=== PATIENT | female | born 1980 | race Hispanic/Latino ===

== ENCOUNTER 2017-03-17 08:53 | Emergency (ER) | payer BC, SELFPAY ==
--- NOTE | 2017-03-17 09:51 | RAD ---
TWO VIEWS CHEST 03/17/17 COMPARISON: Single view chest 05/22/15 INDICATION: Cough. FINDINGS: Lungs are clear. Cardiac silhouette is within normal limits of size. No effusion or pneumothorax. Os seous structures are intact. IMPRESSION: No focal consolidation. POS: H
== END 2017-03-17 10:05 | disposition home or self-care (01) ==
LOC: ERS 08:53
DX: J20.9 Acute bronchitis, unspecified (principal); F32.9 Major depressive disorder, single episode, unspecified
CPT/HCPCS: 71020

== ENCOUNTER 2017-07-26 08:23 | Emergency (ER) | payer BC, SELFPAY ==
[2017-07-26 09:31] LABS: Pregnancy Test - Urine (BHCG) Negative (Negative); Pregu Control Background? CLEAR/WHITE (CLR/WHITE); Pregu Control Bar Appear? YES (CONTROL BAR); Specific Gravity 1.015 (1.002-1.036)
--- NOTE | 2017-07-26 09:47 | RAD ---
PORTABLE CHEST ONE VIEW: Date: 07-26-17 Time: 9:30 a.m. History: Cough. FINDINGS: Comparison is made with exam of 03-17-17 and 05-22-15. The cardiomediastinum is normal. The lungs are clear. The bony thorax is normal. IMPRESSION: Normal exam. POS: OFF
== END 2017-07-26 10:12 | disposition home or self-care (01) ==
LOC: ERS 08:23
DX: B34.9 Viral infection, unspecified (principal); F32.9 Major depressive disorder, single episode, unspecified
CPT/HCPCS: 71045; 81025; 87081; 87430; 87804

== ENCOUNTER 2017-10-17 19:24 | Emergency (ER) | payer SELFPAY ==
[2017-10-17 20:12] LABS: Bilirubin Negative (Negative); Blood, Urine Negative (Negative); Clarity CLOUDY (Clear); Glucose, Urine (Dipstick) Negative (Negative); Leukocyte Moderate (Negative); Nitrite Negative (Negative); Protein, Urine (Dipstick) Negative (Neg-Trace); Specific Gravity, Urine 1.015 (1.002-1.036); pH, Urine 7.5 (5.0-9.0)
[2017-10-17 20:14] LABS: Bacteria/HPF 1+ HPF (None Seen); Hyaline Casts/LPF 0-3 HYALINE CAST LPF (0-3 Hyaline); Pathc Cast-AUWi Flag 0.14 (0-2.49); RBC/HPF 0-3 HPF (0-3)
[2017-10-17 20:16] LABS: #Basophils 0.1 thou/uL (0.0-0.2); #Eosinphils 0.2 thou/uL (0.0-0.7); #Lymphocytes 3.5 thou/uL (1.20-3.40); #Monocytes 0.6 thou/uL (0.11-0.59); #Neutrophils 5.9 thou/uL (1.40-6.50); %Basophils 0.8 % (0.0-1.0); %Eosinophils 2.2 % (0.0-10.0); %Lymphocytes 34.2 % (21.0-51.0); %Monocytes 5.7 % (0.0-10.0); %Neutrophils 57.2 % (42.0-75.0); Hemoglobin 12.8 g/dL (12.0-16.0); Mean Corpuscular HGB CONC 33.6 g/dL (32.0-36.0); Mean Corpuscular Hemoglobin 28.9 pg (27.0-31.0); Mean Platelet Volume 7.6 fL (7.4-10.4); Platelet Count 256 thou/uL (130-400); RBC Distribution Width 12.7 % (11.5-14.5); Red Blood Cell (RBC) Count 4.42 mill/uL (4.20-5.40); White Blood Cell (WBC) Count 10.3 thou/uL (4.8-10.8)
[2017-10-17 20:40] LABS: ALT (SGPT) 12 U/L (8-55); AST (SGOT) 15 U/L (5-34); Albumin 3.8 g/dL (3.5-5.0); Alkaline Phosphatase 81 U/L (40-150); Anion Gap 10 mmol/L (10-20); BUN (Urea Nitrogen) 11 mg/dL (7.0-18.7); Bilirubin, Total 0.2 mg/dL (0.2-1.2); Calc. Creatinine Clearance 0 mL/min (70-130); Calcium 8.8 mg/dL (7.8-10.44); Carbon Dioxide 28 mmol/L (22-29); Chloride 105 mmol/L (98-107); Estimated GFR-MDRD 71; Globulin 3.4 g/dL (2.4-3.5); Glucose 98 mg/dL (70-105); Potassium 3.6 mmol/L (3.5-5.1); Protein, Total 7.2 g/dL (6.0-8.3); Sodium 139 mmol/L (136-145)
== END 2017-10-17 22:07 | disposition home or self-care (01) ==
LOC: ERS 19:24
DX: N12 Tubulo-interstitial nephritis, not specified as acute or chronic (principal); F32.9 Major depressive disorder, single episode, unspecified
CPT/HCPCS: 36415; 80053; 81003; 81015; 85025; 87086; 99284

== ENCOUNTER 2019-01-29 14:39 | Emergency (ER) | payer SELFPAY ==
[2019-01-29] MEDS ORDERED: diphenhydrAMINE 50 MG/ML VIAL ONE (15:28)
[2019-01-29] MEDS ORDERED: Metoclopramide HCl 10 MG/2 ML VIAL ONE (15:28)
[2019-01-29] MEDS ORDERED: Ketorolac Tromethamine 30 MG/ML VIAL ONE (15:28)
[2019-01-29] MEDS ORDERED: diphenhydrAMINE 12.5 MG/5 ML UDCUP ONE (15:28)
[2019-01-29] MEDS ORDERED: Acetaminophen 500 MG TAB ONE (15:28)
== END 2019-01-29 17:28 | disposition home or self-care (01) ==
LOC: ERS 14:39
DX: R51 Headache (principal)
CPT/HCPCS: 93005; 96365; 96366; 96375; J1200; J1885; J2765; Q0163

== ENCOUNTER 2019-02-08 13:49 | Emergency (ER) | payer SELFPAY ==
[2019-02-08 15:15] LABS: Bacteria/HPF None Seen HPF (None Seen); Bilirubin Negative (Negative); Blood, Urine Negative (Negative); Clarity Clear (Clear); Glucose, Urine (Dipstick) Normal (Negative); Leukocyte 75 Leu/uL (Negative); Nitrite Negative (Negative); Protein, Urine (Dipstick) Negative (Neg-Trace); RBC/HPF 0-3 HPF (0-3); Urobilinogen Normal mg/dL (Less than 2)
[2019-02-08 15:28] LABS: Pregnancy Test - Urine (BHCG) Negative (Negative); Pregu Control Background? CLEAR/WHITE (CLR/WHITE); Pregu Control Bar Appear? YES (CONTROL BAR); Specific Gravity 1.012 (1.002-1.036)
[2019-02-08 15:33] LABS: #Basophils 0.1 thou/uL (0.0-0.2); #Eosinphils 0.1 thou/uL (0.0-0.7); #Monocytes 0.5 thou/uL (0.11-0.59); #Neutrophils 6.5 thou/uL (1.40-6.50); %Basophils 0.6 % (0.0-1.0); %Eosinophils 1.1 % (0.0-10.0); %Lymphocytes 29.5 % (21.0-51.0); %Monocytes 4.5 % (0.0-10.0); %Neutrophils 64.3 % (42.0-75.0); Hemoglobin 12.5 g/dL (12.0-16.0); Mean Corpuscular HGB CONC 34.2 g/dL (32.0-36.0); Mean Corpuscular Hemoglobin 28.8 pg (27.0-31.0); Mean Corpuscular Volume 84.2 fL (78.0-98.0); Mean Platelet Volume 7.8 fL (7.4-10.4); Platelet Count 242 thou/uL (130-400); RBC Distribution Width 12.4 % (11.5-14.5); Red Blood Cell (RBC) Count 4.35 mill/uL (4.20-5.40); White Blood Cell (WBC) Count 10.2 thou/uL (4.8-10.8)
[2019-02-08 15:57] LABS: ALT (SGPT) 14 U/L (8-55); AST (SGOT) 17 U/L (5-34); Alkaline Phosphatase 83 U/L (40-150); Anion Gap 9 mmol/L (10-20); BUN (Urea Nitrogen) 10 mg/dL (7.0-18.7); Bilirubin, Total 0.2 mg/dL (0.2-1.2); Calc. Creatinine Clearance 0 mL/min (70-130); Calcium 9.1 mg/dL (7.8-10.44); Carbon Dioxide 27 mmol/L (22-29); Chloride 103 mmol/L (98-107); Estimated GFR-MDRD 88; Globulin 3.2 g/dL (2.4-3.5); Glucose 89 mg/dL (70-105); Lipase 12 U/L (8-78); Protein, Total 7.2 g/dL (6.0-8.3); Sodium 135 mmol/L (136-145)
[2019-02-08] MEDS ORDERED: Acetaminophen 500 MG TAB ONE (16:37)
== END 2019-02-08 16:41 | disposition home or self-care (01) ==
LOC: ERS 13:49
DX: R10.30 Lower abdominal pain, unspecified (principal); F41.9 Anxiety disorder, unspecified; F32.9 Major depressive disorder, single episode, unspecified
CPT/HCPCS: 36415; 80053; 81003; 81015; 81025; 83690; 85025; 99284

== ENCOUNTER 2019-04-02 19:04 | Emergency (ER) | payer SELFPAY ==
[2019-04-02 20:00] LABS: #Basophils 0.1 thou/uL (0.0-0.2); #Eosinphils 0.2 thou/uL (0.0-0.7); #Lymphocytes 4.1 thou/uL (1.20-3.40); #Monocytes 0.9 thou/uL (0.11-0.59); #Neutrophils 7.3 thou/uL (1.40-6.50); %Basophils 0.7 % (0.0-1.0); %Eosinophils 1.6 % (0.0-10.0); %Lymphocytes 32.6 % (21.0-51.0); %Monocytes 6.9 % (0.0-10.0); %Neutrophils 58.2 % (42.0-75.0); Hemoglobin 12.5 g/dL (12.0-16.0); Mean Corpuscular HGB CONC 34.3 g/dL (32.0-36.0); Mean Corpuscular Volume 84.5 fL (78.0-98.0); Mean Platelet Volume 7.8 fL (7.4-10.4); Platelet Count 290 thou/uL (130-400); RBC Distribution Width 12.4 % (11.5-14.5); White Blood Cell (WBC) Count 12.6 thou/uL (4.8-10.8)
[2019-04-02 20:14] LABS: Bilirubin Negative (Negative); Blood, Urine 3+ (Negative); Clarity Turbid (Clear); Glucose, Urine (Dipstick) Normal (Negative); Leukocyte 250 Leu/uL (Negative); Nitrite Negative (Negative); Protein, Urine (Dipstick) 50 mg/dL (Neg-Trace); RBC/HPF Greater than 50 HPF (0-3); Squamous Epithelial 0-3 HPF (0-3); Urobilinogen 3 mg/dL (Less than 2)
[2019-04-02 20:14] LABS: ALT (SGPT) 18 U/L (8-55); AST (SGOT) 18 U/L (5-34); Alkaline Phosphatase 92 U/L (40-110); Anion Gap 14 mmol/L (10-20); BUN (Urea Nitrogen) 11 mg/dL (7.0-18.7); Bilirubin, Total 0.2 mg/dL (0.2-1.2); Calc. Creatinine Clearance 0 mL/min (70-130); Calcium 9.7 mg/dL (7.8-10.44); Carbon Dioxide 25 mmol/L (22-29); Chloride 104 mmol/L (98-107); Estimated GFR-MDRD 87; Globulin 3.5 g/dL (2.4-3.5); Glucose 83 mg/dL (70-105); Potassium 3.6 mmol/L (3.5-5.1); Protein, Total 7.5 g/dL (6.0-8.3); Sodium 139 mmol/L (136-145)
[2019-04-02 20:23] LABS: Bacteria/HPF Rare-Few HPF (None Seen); Mucous/LPF 1+ LPF (<2+)
[2019-04-02] MEDS ORDERED: Ketorolac Tromethamine 30 MG/ML VIAL ONE (21:49)
--- NOTE | 2019-04-02 22:03 | CT ---
CT Stone Protocol: 04/02/2019 9:42 PM HISTORY: Left mid to low back pain. Recent cervical biopsy COMPARISON: None. TECHNIQUE: Multiple contiguous axial images were obtained and a CT of the abdomen and pelvis without IV contrast . Coronal and sagittal reformats were performed. FINDINGS: This examination is limited for the evaluation of solid organs and vascular structures due to the lac k of intravenous contrast. Lower Chest: within normal limits. Abdomen: Liver: within normal limits. Bile Ducts: Normal caliber. Gallbladder: No calcified gallstones. Normal caliber wall. Pancreas: within normal limits. Spleen: within normal limits. Adrenals: within normal limits. Kidneys: within normal limits. Pelvis: Reproductive Organs: An exophytic mass emanating from the anterior uterus likely represents a fibroid . Ureters: within normal limits. Bladder: within normal limits. Bowel: Normal caliber. Normal appendix. Mesenteric Lymph Nodes: No enlarged mesenteric lymph nodes. Peritoneum: No ascites or free air, no fluid collection. Vessels: Normal caliber aorta Retroperitoneum: within normal limits. Abdominal Wall: within normal limits. Bones: Unremarkable. IMPRESSION: 1. Uterine fibroid 2. No evidence of acute intra-abdominal/pelvic abnormality.
== END 2019-04-02 23:12 | disposition home or self-care (01) ==
LOC: ERS 19:04
DX: N39.0 Urinary tract infection, site not specified (principal); D25.9 Leiomyoma of uterus, unspecified; M54.5 Low back pain
CPT/HCPCS: 36415; 74176; 80053; 81003; 81015; 85025; 96372; J1885

== ENCOUNTER 2019-04-24 09:00 | Emergency (ER) | payer SELFPAY ==
[2019-04-24 10:45] LABS: #Basophils 0.1 thou/uL (0.0-0.2); #Eosinphils 0.2 thou/uL (0.0-0.7); #Lymphocytes 2.4 thou/uL (1.20-3.40); #Monocytes 0.7 thou/uL (0.11-0.59); #Neutrophils 8.1 thou/uL (1.40-6.50); %Basophils 0.8 % (0.0-1.0); %Eosinophils 1.4 % (0.0-10.0); %Lymphocytes 20.7 % (21.0-51.0); %Monocytes 5.9 % (0.0-10.0); %Neutrophils 71.2 % (42.0-75.0); Hemoglobin 12.2 g/dL (12.0-16.0); Mean Corpuscular HGB CONC 33.4 g/dL (32.0-36.0); Mean Corpuscular Hemoglobin 28.2 pg (27.0-31.0); Mean Corpuscular Volume 84.4 fL (78.0-98.0); Mean Platelet Volume 7.8 fL (7.4-10.4); Platelet Count 251 thou/uL (130-400); RBC Distribution Width 12.2 % (11.5-14.5); Red Blood Cell (RBC) Count 4.31 mill/uL (4.20-5.40); White Blood Cell (WBC) Count 11.3 thou/uL (4.8-10.8)
[2019-04-24 10:55] LABS: BHCG - Serum Negative (NEGATIVE); Pregs Control Background? CLEAR/WHITE (CLR/WHITE); Pregs Control Bar Appear? YES (CONTROL BAR)
[2019-04-24 11:00] LABS: ALT (SGPT) 14 U/L (8-55); AST (SGOT) 16 U/L (5-34); Albumin 3.5 g/dL (3.5-5.0); Alkaline Phosphatase 86 U/L (40-110); Anion Gap 13 mmol/L (10-20); BUN (Urea Nitrogen) 9 mg/dL (7.0-18.7); Bilirubin, Total 0.3 mg/dL (0.2-1.2); Calc. Creatinine Clearance 0 mL/min (70-130); Calcium 8.5 mg/dL (7.8-10.44); Carbon Dioxide 21 mmol/L (22-29); Chloride 107 mmol/L (98-107); Estimated GFR-MDRD Greater than 90; Globulin 3.5 g/dL (2.4-3.5); Glucose 95 mg/dL (70-105); Potassium 3.7 mmol/L (3.5-5.1); Sodium 137 mmol/L (136-145)
--- NOTE | 2019-04-24 11:41 | CT ---
CT ABDOMEN AND PELVIS WITH IV CONTRAST 04/24/2019 CLINICAL INFORMATION: Vaginal bleeding in a patient with history of stage III cervical cancer. COMPARISON: Noncontrast CT abdomen and pelvis on 04/02/2019. Technique: Multiple contiguous axial CT images are obtained through the abdomen and pelvis with IV contrast. Cor onal reformatted images are provided. FINDINGS: Lower Chest: Lung bases are clear. No discrete pulmonary nodule, mass, or pleural effusion is identif ied. Vessels: Abdominal aorta is normal in caliber. Abdomen: Portal vein:Patent Gallbladder: Within normal limits for CT imaging. Liver: within normal limits. Spleen: within normal limits. Pancreas: within normal limits. Adrenals: within normal limits. Kidneys: within normal limits. Bowel: Normal caliber. Appendix: The appendix is visualized and normal in caliber. Peritoneum: No ascites or free air; no fluid collection. Mesentery and Retroperitoneum: No enlarged mesenteric or retroperitoneal lymph nodes. Abdominal Wall: within normal limits. Pelvis: Reproductive Organs: The cervix is enlarged and heterogeneous in appearance with areas of gas density . The enlarged cervix measures 6.3 cm x 5.5 cm in axial dimensions. Areas of diminished attenuation with associated gas density in the cervix are likely related to areas of necrosis. The patient has a known cervical neoplasm. An exophytic lesion with similar density to the adjacent body of the uterus is seen anterolaterally on the left measuring 2.6 cm which may represent a uterine fibroid. Bladder: Decompressed. Bones: No suspicious lytic or sclerotic osseous lesion is identified. IMPRESSION: 1. Enlargement and heterogeneity of the cervix likely corresponding to patient's known cervical neopl asm. Areas of heterogeneity with associated gas density are probably related to necrosis. 2. Stable uterine fibroid. 3. No evidence of lymphadenopathy.
--- NOTE | 2019-04-24 11:56 | PDOC.EVN ---
Event Note - Event Note Event Note: Called to ER for this 38 yo LAF with h/o Stage 3 cervix cancer who presents now with vaginal bleeding. Call placed by ER to her treating physician Dr. Patricia Ham who has requested I pack her and that she be sent buy private auto to her at [facility] in the [place] ER. VS are stable. Her Hgb is 12. PEx: Pelvic: Speculum exam shows bleeding from apparent tumur in vault. Packed with Kerlix w/o difficulty. ER staff will provide precautions and directions to her.
[2019-04-24] MEDS ORDERED: Iopamidol 370 76% 100 ML VIAL ONE (12:51)
== END 2019-04-24 13:43 | disposition short-term general hospital (02) ==
LOC: ERS 09:00
DX: C53.9 Malignant neoplasm of cervix uteri, unspecified (principal); F32.9 Major depressive disorder, single episode, unspecified; F41.9 Anxiety disorder, unspecified
CPT/HCPCS: 36415; 74177; 80053; 84703; 85025; 86850; 86900; 86901; Q9967

== ENCOUNTER 2019-06-13 12:37 | Outpatient (CLI) | payer MEDICAID ==
[2019-06-13 15:09] LABS: #Basophils 0.1 thou/uL (0.0-0.2); #Eosinphils 0.1 thou/uL (0.0-0.7); #Lymphocytes 2.9 thou/uL (1.20-3.40); #Monocytes 0.8 thou/uL (0.11-0.59); #Neutrophils 9.8 thou/uL (1.40-6.50); %Basophils 0.6 % (0.0-1.0); %Eosinophils 0.9 % (0.0-10.0); %Lymphocytes 21.3 % (21.0-51.0); %Monocytes 5.6 % (0.0-10.0); %Neutrophils 71.6 % (42.0-75.0); Mean Corpuscular HGB CONC 32.9 g/dL (32.0-36.0); Mean Corpuscular Hemoglobin 26.4 pg (27.0-31.0); Mean Corpuscular Volume 80.2 fL (78.0-98.0); Platelet Count 332 thou/uL (130-400); RBC Distribution Width 13.5 % (11.5-14.5); Red Blood Cell (RBC) Count 4.16 mill/uL (4.20-5.40); White Blood Cell (WBC) Count 13.7 thou/uL (4.8-10.8)
[2019-06-13 15:28] LABS: Anion Gap 12 mmol/L (10-20); BUN (Urea Nitrogen) 8 mg/dL (7.0-18.7); Calc. Creatinine Clearance 0 mL/min (70-130); Calcium 8.9 mg/dL (7.8-10.44); Carbon Dioxide 27 mmol/L (22-29); Chloride 103 mmol/L (98-107); Estimated GFR-MDRD Greater than 90; Glucose 96 mg/dL (70-105); Potassium 3.5 mmol/L (3.5-5.1); Sodium 138 mmol/L (136-145)
== END 2019-06-13 12:38 | disposition home or self-care (01) ==
LOC: LABBT 12:37
PROVIDERS: ATTEND Specialist
DX: Z01.812 Encounter for preprocedural laboratory examination (principal); C53.9 Malignant neoplasm of cervix uteri, unspecified
CPT/HCPCS: 80048; 85025

== ENCOUNTER 2019-06-14 06:36 | Day surgery (SDC) | payer MEDICAID ==
[2019-06-13 12:50] VITALS: BMI 37.3
[2019-06-14] MEDS ORDERED: Acetaminophen 500 MG TAB ONE (07:20)
[2019-06-14] MEDS ORDERED: Ketorolac Tromethamine 30 MG/ML VIAL ONE (07:20)
[2019-06-14] MEDS ORDERED: Lidocaine 1% (PF) 30 ML VIAL ONE (08:49)
[2019-06-14] MEDS ORDERED: Bupivacaine 0.25% HCL 30 ML VIAL ONE (08:49)
[2019-06-14] MEDS ORDERED: EPINEPHrine 1 MG/ML AMP ONE (08:49)
[2019-06-14] MEDS ORDERED: Fentanyl 100 MCG/2 ML VIAL ONE (08:57)
[2019-06-14] MEDS ORDERED: Midazolam HCl 2 mg/2 ml Vial ONE (08:57)
[2019-06-14] MEDS ORDERED: Lidocaine 1% w/Epinephrine 1:100K 20 ML VIAL ONE (09:07)
--- NOTE | 2019-06-14 10:37 | RAD ---
Exam: Chest one view HISTORY:Status post Mediport catheter placement. Evaluate for pneumothorax. Comparison: None FINDINGS: Lines and tubes: Right-sided Mediport catheter with the distal tip projecting over the right atrium. Cardiac silhouette: Normal Aorta: Unremarkable Pulmonary vessels: Normal Costophrenic angles: Clear LUNGS: No masses or consolidation. Pneumothorax: None Osseous abnormalities: None IMPRESSION: 1. Right-sided Mediport catheter with the distal tip projecting over the region of the right atrium. No pneumothorax.
[2019-06-14] MEDS ORDERED: PROPOFOL 200 MG/20 ML VIAL ONE (15:52)
--- NOTE | 2019-06-15 05:20 | OP ---
DATE OF PROCEDURE: 06/14/2019 PREOPERATIVE DIAGNOSIS: Cervical cancer. POSTOPERATIVE DIAGNOSIS: Cervical cancer. OPERATION PERFORMED: Placement of a right subclavian power compatible standard size MediPort. ANESTHESIA: Total intravenous anesthesia with local using 0.25% Marcaine with epinephrine. INDICATIONS: The patient is a 38-year-old moderately obese female. She was recently diagnosed with cervical cancer. She was taken to the operative room for MediPort placement for chemotherapy administration. DESCRIPTION OF OPERATION: Informed consent was obtained. The patient was taken to the operating room where total intravenous anesthesia was obtained with the patient in supine position. Right periclavicular area was prepped with ChloraPrep and draped in sterile fashion. Local anesthetic was infiltrated and a large-gauge needle was passed under the clavicle in the subclavian vein. Guidewire was passed through the needle and fluoroscopically confirmed to enter the superior vena cava. Additional local anesthetic was infiltrated and transverse incision was created based on needle insertion site. A subcutaneous pocket was dissected inferiorly. Introducer dilator was passed over the guidewire under fluoroscopic guidance. The guidewire and dilator were removed, and the catheter was passed through the introducer. The tip of the catheter was positioned at the atriocaval junction and the catheter was trimmed to the appropriate length and secured to the locking hub of the MediPort. The port was then placed in the subcutaneous pocket where it was secured to the pectoral fascia with 2 interrupted sutures of 3-0 Prolene. The incision was then closed in layers with 3-0 and 4-0 Monocryl. Additional local anesthetic was infiltrated. The port was cannulated with a Pinto needle and it aspirated blood freely and was flushed with heparinized saline. Dermabond was placed externally on the skin incision. There were no complications. Blood loss was negligible. The patient tolerated the procedure well and was taken to recovery room in stable condition. FINDINGS: A standard size power compatible port was selected secondary to the patient's body habitus. externally and internally. There were no complications and no blood loss during the procedure. She tolerated the procedure well and was taken to recovery in stable condition. Job ID: [id number]
== END 2019-06-14 11:50 | disposition home or self-care (01) ==
LOC: SDC 06:36
PROVIDERS: ATTEND Specialist
PROC: 02HV33Z Insertion of Infusion Device into Superior Vena Cava, Percutaneous Approach (ICD-10-PCS; principal; 2019-06-14)
DX: C53.9 Malignant neoplasm of cervix uteri, unspecified (principal)
CPT/HCPCS: 71045; C1788; J0171; J0690; J1642; J1885; J2001; J2250; J2704; J3010; S0020

== ENCOUNTER 2019-10-19 07:53 | Outpatient (CLI) | payer OTHER ==
--- NOTE | 2019-10-19 10:35 | PET ---
Nuclear medicine FDG PET/CT: (Positron emission tomography and computed tomography) DATE: 10/19/2019 HISTORY: 39-year-old female with cervical cancer: Malignant neoplasm of overlapping sites of cervix. Restaging after completion of chemotherapy and radiation therapy. COMPARISON: 05/02/2019 PET-CT from [place] TECHNIQUE: IV injection of F-18 fluorodeoxyglucose (FDG) dose: 12.2 mCi. PET scan and attenuation correction CT performed from skull base to proximal thighs. FINDINGS: SUV (standard uptake values) numbers given are maximum SUVs. QCLR used. The previous study showed a 5.7 x 5.7 x 4.2 cm mass at the uterine cervix which was extremely FDG estela d, with SUV of 20.6. Now, the cervix is much smaller, close to normal in size, measuring approximately 3.5 x 4.5 cm. The r ight side of the cervix has apparent SUV of 5.0 along a linear band extending from the posterior aspect of the urinary bladder activity to that of the anorectal junction which has SUV of 4.7. It is uncertain whether this apparent FDG avidity in the right side of the cervix represents actual residual tumor activity or artifact. For comparison, the left side and central aspects of the cervix have SUV of 3.1. For comparison, a small left upper uterine fibroid has SUV of 3.1. Uterine myometrium has SUV of 2.6, and endometrium has SUV of 3.2. These are probably physiologic degrees of FDG uptake. In the uterus. The previous outside study showed slightly enlarged intrapelvic iliac chain lymph nodes which were no t available. These have all decreased in size now. For example, external iliac chain nodes bilaterally each had short axis measurements of approximately 0.5 cm. The one on the left has short a xis measurement of approximately 0.3 cm. They are mostly inconspicuous and not FDG-avid. The previously mentioned left common iliac node which previously measured approximately 0.6 x 1.2 cm curr ently measures approximately 0.5 x 0.6 cm. There are no abnormally FDG avid hypermetabolic lesions anywhere outside of the cervix, abdomen, ches t, or neck. IMPRESSION: 1. Strong, at least partial response to therapy. The cervical mass has become much smaller, and much less FDG avid. Currently, there is a small linear streak of SUV of 5.0 in the right side of the cervix. It is assumed that this represents mild residual neoplastic activity, although there is a sma ll chance that this could be artifact. 2. No other regions of FDG avid hypermetabolic activity.
== END 2019-10-19 07:54 | disposition home or self-care (01) ==
LOC: PET 07:53
PROVIDERS: ATTEND Internal Medicine Hematology & Oncology
DX: C53.8 Malignant neoplasm of overlapping sites of cervix uteri (principal); N88.8 Other specified noninflammatory disorders of cervix uteri; Z92.3 Personal history of irradiation; Z92.21 Personal history of antineoplastic chemotherapy
CPT/HCPCS: 78815; A9552

== ENCOUNTER 2020-02-26 16:48 | Emergency (ER) | payer OTHER ==
[2020-02-26] MEDS ORDERED: Dexamethasone 10 MG/ML VIAL ONE (17:50)
[2020-02-26] MEDS ORDERED: Acetaminophen 500 MG TAB ONE (17:50)
[2020-02-26] MEDS ORDERED: cefTRIAXone\\ROCEPHIN 1 GM VIAL ONE (17:50)
== END 2020-02-26 18:10 | disposition home or self-care (01) ==
LOC: ERS 16:48
DX: J36 Peritonsillar abscess (principal); F41.9 Anxiety disorder, unspecified; F32.9 Major depressive disorder, single episode, unspecified
CPT/HCPCS: 96372; 99283; J0696; J1100

== ENCOUNTER 2021-02-10 07:34 | Outpatient (CLI) | payer OTHER | END 2021-02-10 07:35 | disposition home or self-care (01) | LOC: PET 07:34 | PROVIDERS: ATTEND Obstetrics & Gynecology Gynecologic Oncology | DX: C53.1 Malignant neoplasm of exocervix (principal); R10.2 Pelvic and perineal pain; M54.5 Low back pain; N94.10 Unspecified dyspareunia | CPT/HCPCS: 78815; A9552 ==

== ENCOUNTER 2021-06-10 14:04 | Emergency (ER) | payer OTHER ==
[2021-06-11 09:36] LABS: SARS-CoV-2 PCR by NAA DETECTED (NotDetected)
== END 2021-06-10 16:18 | disposition home or self-care (01) ==
LOC: ERS 14:04
DX: U07.1 COVID-19 (principal)
CPT/HCPCS: 87081; 87430; 99283; U0003; U0005

== ENCOUNTER 2021-08-30 20:17 | Emergency (ER) | payer OTHER ==
[2021-08-30] MEDS ORDERED: Cyclobenzaprine 10 MG TAB ONE (21:15)
== END 2021-08-30 21:24 | disposition home or self-care (01) ==
LOC: ERS 20:17
DX: S39.012A Strain of muscle, fascia and tendon of lower back, initial encounter (principal); W01.0XXA Fall on same level from slipping, tripping and stumbling without subsequent striking against object, initial encounter
CPT/HCPCS: 99283

== ENCOUNTER 2022-02-08 08:16 | Emergency (ER) | payer BC, OTHER ==
[2022-02-08 09:31] LABS: #Basophils 0.1 thou/uL (0.0-0.2); #Eosinphils 0.1 thou/uL (0.0-0.7); #Lymphocytes 1.6 thou/uL (1.20-3.40); #Monocytes 0.3 thou/uL (0.11-0.59); #Neutrophils 3.5 thou/uL (1.40-6.50); %Basophils 1.2 % (0.0-1.0); %Eosinophils 2.5 % (0.0-10.0); %Lymphocytes 28.4 % (21.0-51.0); %Monocytes 5.7 % (0.0-10.0); %Neutrophils 62.2 % (42.0-75.0); Hemoglobin 14.1 g/dL (12.0-16.0); Mean Corpuscular HGB CONC 33.9 g/dL (32.0-36.0); Mean Corpuscular Hemoglobin 30.8 pg (27.0-31.0); Mean Corpuscular Volume 90.9 fL (78.0-98.0); Mean Platelet Volume 7.5 fL (7.4-10.4); Platelet Count 214 thou/uL (130-400); RBC Distribution Width 12.2 % (11.5-14.5); White Blood Cell (WBC) Count 5.6 thou/uL (4.8-10.8)
[2022-02-08] MEDS ORDERED: Iopamidol-370 76% 500 ML 1 ML ONE (10:10)
[2022-02-08] MEDS ORDERED: Acetaminophen 500 MG TAB ONE (10:19)
[2022-02-08] MEDS ORDERED: Ketorolac Tromethamine 30 MG/ML VIAL ONE (10:19)
[2022-02-08 10:32] LABS: ALT (SGPT) 61 U/L (8-55); AST (SGOT) 40 U/L (5-34); Albumin 3.8 g/dL (3.5-5.0); Alkaline Phosphatase 89 U/L (40-110); Anion Gap 14 mmol/L (10-20); BUN (Urea Nitrogen) 12 mg/dL (7.0-18.7); Bilirubin, Total 0.4 mg/dL (0.2-1.2); Calc. Creatinine Clearance 0 mL/min (70-130); Calcium 9.5 mg/dL (7.8-10.44); Carbon Dioxide 25 mmol/L (22-29); Chloride 103 mmol/L (98-107); Estimated GFR 101; Globulin 3.8 g/dL (2.4-3.5); Glucose 122 mg/dL (70-105); Potassium 4.3 mmol/L (3.5-5.1); Protein, Total 7.6 g/dL (6.0-8.3); Sodium 138 mmol/L (136-145)
== END 2022-02-08 12:03 | disposition home or self-care (01) ==
LOC: ERS 08:16
DX: M54.50 Low back pain, unspecified (principal)
CPT/HCPCS: 36415; 74177; 80053; 82550; 84702; 85025; 96374; J1885; Q9967

== ENCOUNTER 2022-02-11 10:27 | Outpatient (CLI) | payer OTHER, BC | END 2022-02-11 10:28 | disposition home or self-care (01) | LOC: MRI 10:27 | PROVIDERS: ATTEND Nurse Practitioner Family | DX: C53.1 Malignant neoplasm of exocervix (principal) | CPT/HCPCS: 72197 ==

== ENCOUNTER 2023-02-01 14:07 | Emergency (ER) | payer BC, OTHER ==
[2023-02-01 15:34] LABS: SARS-CoV-2 NAA Rapid Test Not Detected (NotDetected)
== END 2023-02-01 15:47 | disposition home or self-care (01) ==
LOC: ERS 14:07
DX: J02.9 Acute pharyngitis, unspecified (principal); Z20.822 Contact with and (suspected) exposure to COVID-19
CPT/HCPCS: 87081; 87430; 99283

== ENCOUNTER 2025-01-03 08:16 | Emergency (ER) | payer BC, OTHER ==
[2025-01-03] MEDS ORDERED: Acetaminophen 500 MG TAB ONE (08:42)
[2025-01-03] MEDS ORDERED: Dexamethasone 10 MG/ML VIAL ONE (08:42)
== END 2025-01-03 09:02 | disposition home or self-care (01) ==
LOC: ERS 08:16
DX: J02.8 Acute pharyngitis due to other specified organisms (principal); B96.89 Other specified bacterial agents as the cause of diseases classified elsewhere
CPT/HCPCS: 87081; 87430; 99282; J1100